=== PATIENT | male | born 1935 | race Caucasian/White ===

== ENCOUNTER 2017-03-01 11:17 | Emergency (ER) | payer MEDICARE, OTHER ==
[~2017-03-01] VITALS: Ht 154.9 cm; Wt 71.0 kg
[~2017-03-01 11:17] MED LIST: FERR325E14 PO; FINA5TAB5 PO; LEVO500T6 PO; ONDA4TAB40 PO; TRAM50TA1 PO
[2017-03-01 11:59] VITALS: BP 153/62
--- NOTE | 2017-03-01 12:56 | NUR ---
PATIENT PRESENTS TO ED WITH C/O BLISTER ON RIGHT CHEST; IV PORT TAKEN OFF LAST Wednesday02/22/2017;HX OF COLON CA, BPH;RX OF MEDS FOR BPH .DENIES N/V/D; SKIN IS PINK/WARM/DRY; AAOX4 WITH EVEN AND STEADY GAIT; LUNGS CLEAR BL; HR EVEN AND REGULAR; PT DENIES ANY FEVER, CP, SOB, OR COUGH AT THIS TIME; PATIENT STATES PAIN OF 0/10 AT THIS TIME;PATIENT POSITIONED FOR COMFORT; HOB ELEVATED; BEDRAILS UP X2; BED DOWN. ER MD MADE AWARE OF PT STATUS.
--- NOTE | 2017-03-01 13:02 | NUR ---
DR MOSER AT BEDSIDE.
--- NOTE | 2017-03-01 13:23 | NUR ---
Patient discharged with v/s stable. Written and verbal after care instructions given and explained. Patient alert, oriented and verbalized understanding of instructions. Ambulatory with steady gait. All questions addressed prior to discharge. ID band removed. Patient advised to follow up with PMD. Rx of BENADRYL TOPICAL OINTMENT given. Patient educated on indication of medication including possible reaction and side effects. Opportunity to ask questions provided and answered.
[2017-03-01 13:24] VITALS: BP 138/64
== END 2017-03-01 13:23 | disposition home or self-care (01) ==
LOC: MED 11:17
DX: S20.321A Blister (nonthermal) of right front wall of thorax, initial encounter (principal); R03.0 Elevated blood-pressure reading, without diagnosis of hypertension; Z85.038 Personal history of other malignant neoplasm of large intestine; N40.0 Benign prostatic hyperplasia without lower urinary tract symptoms; X58.XXXA Exposure to other specified factors, initial encounter; Y93.89 Activity, other specified; Y92.89 Other specified places as the place of occurrence of the external cause; Y99.8 Other external cause status
CPT/HCPCS: 99283; J7030